=== PATIENT | male | born 1970 | race Caucasian/White ===

== ENCOUNTER → 2019-01-07 | Outpatient (CLI) | payer OTHER ==
--- NOTE | 2019-01-08 08:18 | Diagnostic Imaging Report ---
TECHNIQUE: Magnetic resonance imaging of the RIGHT SHOULDER was performed WITHOUT injected contrast. COMPARISON: None available. HISTORY: Right shoulder pain, fall FINDINGS: MUSCLES AND TENDONS: Rotator Cuff: Tendons: Supraspinatus: Intact Infraspinatus: Intact Teres Minor: Intact Subscapularis: Intact Muscles: No focal muscle atrophy. Biceps Tendon: The long head of the biceps tendon is intact and within the intertubercular groove. GLENOHUMERAL JOINT: Glenoid Labrum: Superior labral fraying. Articular Cartilage: No focal defect. AC JOINT AND ACROMION: No hypertrophic degenerative changes of the acromioclavicular joint. The acromion is unremarkable. BONE: Impaction fracture to the greater tuberosity. SOFT TISSUES: Mild subacromial subdeltoid bursal fluid. IMPRESSION: Nondisplaced impaction fracture to the greater tuberosity. Mild subacromial subdeltoid bursal fluid/bursitis. Intact rotator cuff. Signed by: Dr. Adan Ibrahim M.D. on 01/08/2019 8:15 AM
== END ==
LOC: MRI 14:57
PROVIDERS: ATTEND Specialist
DX: S46.011A Strain of muscle(s) and tendon(s) of the rotator cuff of right shoulder, initial encounter (principal)

== ENCOUNTER 2019-03-10 08:57 | Outpatient (RCR) | payer OTHER | END 2019-03-20 | LOC: PT 08:57 | PROVIDERS: ATTEND Specialist | DX: S42.91XA Fracture of right shoulder girdle, part unspecified, initial encounter for closed fracture (principal); M62.81 Muscle weakness (generalized); M25.511 Pain in right shoulder; M25.611 Stiffness of right shoulder, not elsewhere classified ==

== ENCOUNTER 2019-04-13 07:00 | Outpatient (RCR) | payer OTHER | END 2019-04-19 | LOC: PT 07:00 | PROVIDERS: ATTEND Specialist | DX: S42.91XA Fracture of right shoulder girdle, part unspecified, initial encounter for closed fracture (principal); M62.81 Muscle weakness (generalized); M25.511 Pain in right shoulder; M25.611 Stiffness of right shoulder, not elsewhere classified ==

== ENCOUNTER 2019-04-21 09:05 | Outpatient (RCR) | payer OTHER | END 2019-05-20 | LOC: PT 09:05 | PROVIDERS: ATTEND Specialist | DX: S42.91XA Fracture of right shoulder girdle, part unspecified, initial encounter for closed fracture (principal); M62.81 Muscle weakness (generalized); M25.511 Pain in right shoulder; M25.611 Stiffness of right shoulder, not elsewhere classified ==

== ENCOUNTER → 2020-06-19 | Day surgery (SDC) | payer OTHER ==
[2020-06-14 11:09] LABS: BASOPHILS # (AUTO) 0.1 (0.0-0.1); BASOPHILS % 0.7 % (0.0-1.0); EOSINOPHILS # (AUTO) 0.3 (0.0-0.4); EOSINOPHILS % 3.1 % (0.0-6.0); HEMATOCRIT 42.1 % (38.2-49.6); HEMOGLOBIN 14.5 g/dL (14.0-18.0); LYMPHOCYTES # (AUTO) 2.1 (1.0-3.2); LYMPHOCYTES % 23.1 % (18.0-39.1); MEAN CORPUSCULAR HEMOGLOBIN 30.3 pg (28-32); MEAN CORPUSCULAR HGB CONC 34.4 g/dL (31-35); MEAN CORPUSCULAR VOLUME 88.1 fL (81-99); MONOCYTES # (AUTO) 0.8 (0.2-0.8); MONOCYTES % 9.3 % (4.4-11.3); NEUTROPHILS # (AUTO) 5.7 (2.1-6.9); NEUTROPHILS % 63.5 % (38.7-80.0); PLATELET COUNT 234 x10e3/uL (140-360); RED BLOOD COUNT 4.78 x10e6/uL (4.3-5.7); RED CELL DISTRIBUTION WIDTH 11.9 % (11.7-14.4)
[2020-06-14 11:52] LABS: ALANINE AMINOTRANSFERASE 42 IU/L (0-55); ALBUMIN/GLOBULIN RATIO 1.3 (0.8-2.0); ALKALINE PHOSPHATASE 67 IU/L (40-150); BLOOD UREA NITROGEN 20 mg/dL (7-26); BUN/CREATININE RATIO 22 (6-25); CARBON DIOXIDE 25 mmol/L (22-29); CHLORIDE 104 mmol/L (98-107); CREATININE, SERUM 0.92 mg/dL (0.72-1.25); EST GLOMERULAR FILTRATION RATE > 60 ML/MIN (60-); GLUCOSE 104 mg/dL (74-118); SODIUM 139 mmol/L (136-145)
[2020-06-19] VITALS (13 sets, daily range): BP systolic 115–142; BP diastolic 73–100
[~2020-06-19] VITALS: Ht 177.8 cm; Wt 90.7 kg
[~2020-06-19] MED LIST: ALPRAZOLAM 0.5 MG TAB ONE; ASPIRIN 325 MG TAB ONE; ASPIRIN EC81 MG PO; ATORVASTATIN CA10 MG PO; BIVALRIUDIN 250 MG/VIAL VIAL IV ONE; DIPHENHYDRAMINE HCL 25 MG CAP ONE; FENTANYL CITRATE/PF 100MCG/2 ML INJ ONE; HEPARIN SOD/SOD CHLORIDE 2,000 ML ONE; IOPAMIDOL 370 MG/ML 200 ML INFUS..BTL INJ ONE; LIDOCAINE HCL 2% LOCAL 20 ML VIAL ONE; LOSARTAN POTASS25 MG PO; MIDAZOLAM HCL 2 MG/2 ML VIAL ONE; PRASUGREL 10 MG TAB ONE; SODIUM CHLORIDE 0.9% 1000ML 1,000 ML ONE; SODIUM CHLORIDE 0.9% 50ML 50 ML ONE; VERAPAMIL HCL 2.5 MG/ML 2 ML VIAL ONE
--- NOTE | 2020-06-19 11:15 | NUR ---
pt in ACU 9 , prepped for procedure. Alert oriented and appropriate, PERRLA, respirations even and unlabored to room air. Pulses x4 extremities equal and palpable . Cap fill brisk < 3 sec. + modified barbeau and neurovascular function of right wrist/hand. Right wrist and bilateral groin prepped for procedure. skin intact. Skin warm and dry integrity appears intact in general. IV 20g to left hand by [facility] RN and presents healthy w/o s/s of infiltration or complaint. Abdomen soft and supple. pt offered toileting, denies need to urinate or defecate. Personal affects with patient. Family available post procedure . Pt verbalizes understanding of POC. Educated credit collections clerk light use. bed low and locked, side rails up x2 and call light at side. Awaiting for physician arrival/procedure time. pt using provided/ personal mask for COVID-19 mitigation. -cgf
--- NOTE | 2020-06-19 12:25 | NUR ---
pt up to void w/o incident
--- NOTE | 2020-06-19 14:30 | NUR ---
Assume of care from RN, review of orders, and procedure events. right radial with +neurovascular function and TR band present with 13ml in band. Angiomax infusing. at bedside
--- NOTE | 2020-06-19 14:55 | NUR ---
Angiomax complete. PO nutrition provided.
--- NOTE | 2020-06-19 17:20 | NUR ---
TR band titrated off with increased tenderness with removal. inspection reveals dime sized "knot" mid aspect of anterior arm where TR Band was. pressure applied , pt with marked discomfort. manual pressure applied for 5 min. no gross deformities despite tenderness, full articulation of digits w/ o pain. site dressed and DC teaching started.
--- NOTE | 2020-06-19 17:45 | NUR ---
Pt meets discharge criteria. VS wnl, alert and oriented. Pt and Family Understands discharge instruction. Overall general assess w/o gross outliers. Skin warm, dry, and intact. Right radial dressing soft maintains tenderness proximal to puncture site. + neurovascular function of right hand present. IV removed and appears distal tip is intact, SN therapeutic support staff member verifying. Pt maintains mask on for COVID 19 precautions being taken by wheel chair to awaiting car. Transfers w/o gross distress with discharge paperwork, prescriptions, and diagram in hand.-cgf
--- NOTE | 2020-06-22 09:51 | Operative Report ---
DATE OF PROCEDURE: 06/19/2020 SURGEON: Jaxon Madrigal MD INDICATIONS: Coronary artery disease, angina, and abnormal stress test. PROCEDURES PERFORMED: 1. Left heart catheterization, selective coronary angiography. 2. Stent placement in the mid left anterior descending artery. 3. Ultrasound-guided access in the right radial artery with sheath placement. 4. Conscious sedation, 65 minutes. 5. Deployment of right wrist TR band. COMPLICATIONS: None. RECOMMENDATIONS: Dual antiplatelet therapy for at least 6 months circumflex intervention. DESCRIPTION OF PROCEDURE: Access was obtained in the right radial artery using ultrasound guidance. A 5-German sheath was placed. Coronary angiography demonstrated patent left main. Left anterior descending artery, proximal 50%, mid 80%. Circumflex had mild disease. Right coronary artery 50%. Obtuse marginal branch was a 2 mm vessel with tandem 80% ostial and proximal stenosis. LV end-diastolic pressure was normal. A decision was made to intervene on the left anterior descending artery. The patient received intravenous Angiomax and oral prasugrel and aspirin for anticoagulation. The left main was cannulated using an EBU 3.5 5-German guiding catheter. Short Runthrough wire was advanced across the lesion for support. Proximal mid left anterior descending artery stent 3.0 x 12 mm Synergy deployed at 18 atmospheres. Excellent end result. Less than 10% residual stenosis. ERNST-3 flow. No complications. Wire and guide sheath removed. TR band applied. The patient discharged home. Jaxon Madrigal MD K[facility]/MODL /[id number]
== END | disposition home or self-care (01) ==
LOC: CATH LAB 10:56
PROVIDERS: ATTEND Internal Medicine Interventional Cardiology
DX: I25.118 Atherosclerotic heart disease of native coronary artery with other forms of angina pectoris (principal); I10 Essential (primary) hypertension; E78.5 Hyperlipidemia, unspecified; Z01.812 Encounter for preprocedural laboratory examination; Z20.828 Contact with and (suspected) exposure to other viral communicable diseases; Z79.82 Long term (current) use of aspirin; Z82.49 Family history of ischemic heart disease and other diseases of the circulatory system
CPT/HCPCS: 36415; 76937; 80053; 85025; 92928; 93458; C1769; C1874; C1887; J0583; J2001; J2250; J3010; J7030; Q9967; U0002; 99152; 99153

== ENCOUNTER → 2020-07-04 | Day surgery (SDC) | payer OTHER ==
[2020-06-29 11:53] LABS: BASOPHILS # (AUTO) 0.1 (0.0-0.1); BASOPHILS % 0.7 % (0.0-1.0); EOSINOPHILS # (AUTO) 0.4 (0.0-0.4); EOSINOPHILS % 4.7 % (0.0-6.0); HEMOGLOBIN 15.1 g/dL (14.0-18.0); LYMPHOCYTES # (AUTO) 2.5 (1.0-3.2); LYMPHOCYTES % 27.1 % (18.0-39.1); MEAN CORPUSCULAR HGB CONC 34.3 g/dL (31-35); MEAN CORPUSCULAR VOLUME 87.5 fL (81-99); MONOCYTES # (AUTO) 0.8 (0.2-0.8); MONOCYTES % 8.2 % (4.4-11.3); NEUTROPHILS # (AUTO) 5.4 (2.1-6.9); PLATELET COUNT 253 x10e3/uL (140-360); RED BLOOD COUNT 5.03 x10e6/uL (4.3-5.7); RED CELL DISTRIBUTION WIDTH 11.6 % (11.7-14.4)
[2020-06-29 12:09] LABS: ALANINE AMINOTRANSFERASE 46 IU/L (0-55); ALBUMIN 4.3 g/dL (3.5-5.0); ALBUMIN/GLOBULIN RATIO 1.4 (0.8-2.0); ALKALINE PHOSPHATASE 65 IU/L (40-150); ANION GAP 11.5 mmol/L (8-16); BLOOD UREA NITROGEN 11 mg/dL (7-26); BUN/CREATININE RATIO 13 (6-25); CALCIUM 9.6 mg/dL (8.4-10.2); CARBON DIOXIDE 30 mmol/L (22-29); CHLORIDE 104 mmol/L (98-107); CREATININE, SERUM 0.84 mg/dL (0.72-1.25); EST GLOMERULAR FILTRATION RATE > 60 ML/MIN (60-); GLUCOSE 95 mg/dL (74-118); POTASSIUM 4.5 mmol/L (3.5-5.1); SODIUM 141 mmol/L (136-145)
[~2020-07-04] VITALS: Ht 177.8 cm; Wt 90.7 kg
[2020-07-04] VITALS (18 sets, daily range): BP systolic 114–132; BP diastolic 62–86
[~2020-07-04] MED LIST changes: +CLOPIDOGREL75 MG PO; +HYDROCODONE/APAP 5MG-325MG TAB ONE; -VERAPAMIL HCL 2.5 MG/ML 2 ML VIAL ONE; +ZETIA10 MG PO
== END | disposition home or self-care (01) ==
LOC: CATH LAB 10:35
PROVIDERS: ATTEND Internal Medicine Interventional Cardiology
DX: I25.118 Atherosclerotic heart disease of native coronary artery with other forms of angina pectoris (principal); I10 Essential (primary) hypertension; E78.5 Hyperlipidemia, unspecified; Z01.812 Encounter for preprocedural laboratory examination; Z20.828 Contact with and (suspected) exposure to other viral communicable diseases; Z79.02 Long term (current) use of antithrombotics/antiplatelets; Z79.82 Long term (current) use of aspirin; Z82.49 Family history of ischemic heart disease and other diseases of the circulatory system
CPT/HCPCS: 36415; 76937; 80053; 85025; 92928; 92929; C1725 ×3; C1874; C1876; C1887; J0583; J2001; J2250; J3010; J7030; Q9967; U0002; 93454; 99152; 99153

== ENCOUNTER 2021-05-02 22:05 | Observation (INO) | payer OTHER ==
[~2021-05-02] VITALS: Ht 180.3 cm; Wt 95.7 kg
[~2021-05-02 22:05] MED LIST changes: -ALPRAZOLAM 0.5 MG TAB ONE; -ASPIRIN 325 MG TAB ONE; -BIVALRIUDIN 250 MG/VIAL VIAL IV ONE; -DIPHENHYDRAMINE HCL 25 MG CAP ONE; -FENTANYL CITRATE/PF 100MCG/2 ML INJ ONE; -HEPARIN SOD/SOD CHLORIDE 2,000 ML ONE; -HYDROCODONE/APAP 5MG-325MG TAB ONE; -IOPAMIDOL 370 MG/ML 200 ML INFUS..BTL INJ ONE; -LIDOCAINE HCL 2% LOCAL 20 ML VIAL ONE; -MIDAZOLAM HCL 2 MG/2 ML VIAL ONE; -PRASUGREL 10 MG TAB ONE; -SODIUM CHLORIDE 0.9% 1000ML 1,000 ML ONE; -SODIUM CHLORIDE 0.9% 50ML 50 ML ONE
[2021-05-02] MEDS ORDERED: SODIUM CHLORIDE 0.9% 1000ML 1,000 ML IV STA (22:10)
[2021-05-02] MEDS ORDERED: ASPIRIN 81 MG CHEW TAB PO ONE ×2 (22:15→23:30)
[2021-05-02 22:28] LABS: BASOPHILS # (AUTO) 0.1 (0.0-0.1); BASOPHILS % 0.6 % (0.0-1.0); EOSINOPHILS # (AUTO) 0.4 (0.0-0.4); EOSINOPHILS % 3.3 % (0.0-6.0); HEMATOCRIT 44.8 % (38.2-49.6); HEMOGLOBIN 15.2 g/dL (14.0-18.0); LYMPHOCYTES % 28.4 % (18.0-39.1); MEAN CORPUSCULAR HEMOGLOBIN 29.9 pg (28-32); MEAN CORPUSCULAR HGB CONC 33.9 g/dL (31-35); MEAN CORPUSCULAR VOLUME 88.2 fL (81-99); MONOCYTES # (AUTO) 0.9 (0.2-0.8); MONOCYTES % 8.1 % (4.4-11.3); NEUTROPHILS # (AUTO) 6.2 (2.1-6.9); NEUTROPHILS % 58.9 % (38.7-80.0); PLATELET COUNT 279 x10e3/uL (140-360); RED BLOOD COUNT 5.08 x10e6/uL (4.3-5.7); RED CELL DISTRIBUTION WIDTH 12.1 % (11.7-14.4)
[2021-05-02 22:31] LABS: AMPHETAMINES SCREEN,URINE NEGATIVE (NEGATIVE); PHENCYCLIDINE SCREEN,URINE NEGATIVE (NEGATIVE)
[2021-05-02 22:32] LABS: BENZODIAZEPINES SCREEN,URINE NEGATIVE (NEGATIVE)
[2021-05-02 22:47] LABS: ALBUMIN 4.2 g/dL (3.5-5.0); ALBUMIN/GLOBULIN RATIO 1.4 (0.8-2.0); ANION GAP 13.9 mmol/L (8-16); CALCIUM 9.1 mg/dL (8.4-10.2); CREATININE, SERUM 0.77 mg/dL (0.72-1.25); POTASSIUM 3.9 mmol/L (3.5-5.1)
[2021-05-02 22:53] LABS: CREATINE KINASE MB 1.3 ng/mL (0-5.0)
[2021-05-02] MEDS ORDERED: MORPHINE SULFATE INJ 4 MG/ML INJ 1ML IV PRN (23:30)
[2021-05-02] MEDS ORDERED: ONDANSETRON HCL INJ 2MG/ML 2ML 2 MG/ML VIAL IV PRN (23:30)
[2021-05-03 01:56] VITALS: BP 139/91
[2021-05-03] MEDS ORDERED: ASPIRIN CHEW81 MG PO (02:24)
[2021-05-03] MEDS ORDERED: ATORVASTATIN CA20 MG PO (02:24)
[2021-05-03] MEDS ORDERED: ZETIA10 MG PO (02:24)
[2021-05-03] MEDS ORDERED: AZITHROMYCIN250 MG PO (02:24)
[2021-05-03] MEDS ORDERED: LOSARTAN POTASS25 MG PO (02:24)
[2021-05-03 04:00] VITALS: BP 112/74
[2021-05-03 07:27] LABS: BASOPHILS # (AUTO) 0.1 (0.0-0.1); BASOPHILS % 0.5 % (0.0-1.0); EOSINOPHILS # (AUTO) 0.3 (0.0-0.4); EOSINOPHILS % 3.6 % (0.0-6.0); HEMATOCRIT 41.6 % (38.2-49.6); HEMOGLOBIN 13.9 g/dL (14.0-18.0); LYMPHOCYTES # (AUTO) 2.4 (1.0-3.2); LYMPHOCYTES % 25.3 % (18.0-39.1); MEAN CORPUSCULAR HEMOGLOBIN 29.6 pg (28-32); MEAN CORPUSCULAR HGB CONC 33.4 g/dL (31-35); MEAN CORPUSCULAR VOLUME 88.5 fL (81-99); MONOCYTES # (AUTO) 0.9 (0.2-0.8); NEUTROPHILS # (AUTO) 5.8 (2.1-6.9); NEUTROPHILS % 60.9 % (38.7-80.0); PLATELET COUNT 256 x10e3/uL (140-360); RED CELL DISTRIBUTION WIDTH 12.2 % (11.7-14.4)
[2021-05-03 07:47] VITALS: BP 131/84
[2021-05-03 07:47] LABS: ALBUMIN 3.6 g/dL (3.5-5.0); ALBUMIN/GLOBULIN RATIO 1.4 (0.8-2.0); CALCIUM 8.3 mg/dL (8.4-10.2); CREATININE, SERUM 0.75 mg/dL (0.72-1.25)
[2021-05-03 08:03] LABS: CREATINE KINASE MB 0.9 ng/mL (0-5.0)
[2021-05-03] MEDS ORDERED: ASPIRIN 81 MG CHEW TAB PO SCH (09:00)
[2021-05-03 10:36] VITALS: BP 131/84
[2021-05-03 11:26] VITALS: BP 131/86
[2021-05-03] MEDS ORDERED: COZAAR25 MG PO (11:27)
[2021-05-03] MEDS ORDERED: LOSARTAN POTASSIUM 25 MG TAB PO SCH (13:30)
[2021-05-03] MEDS ORDERED: EZETIMIBE 10 MG TAB PO SCH (13:30)
[2021-05-03 15:58] VITALS: BP 131/88
== END 2021-05-03 18:21 | disposition home or self-care (01) ==
LOC: ER 22:10 → ERHOLD 23:21 → MED/SURG 05-03 01:58
DX: R07.9 Chest pain, unspecified (principal); I16.0 Hypertensive urgency; I10 Essential (primary) hypertension; I25.110 Atherosclerotic heart disease of native coronary artery with unstable angina pectoris; Z95.5 Presence of coronary angioplasty implant and graft; E78.5 Hyperlipidemia, unspecified; Z20.822 Contact with and (suspected) exposure to COVID-19
CPT/HCPCS: 36415 ×2; 70450; 71046; 80053 ×2; 80307; 82550 ×2; 82553 ×2; 84484 ×2; 85025 ×2; 93005; 93306; 99284; G0378 ×2; J2270; J2405; J7030; U0002